=== PATIENT | female | born 1940 | race Caucasian/White ===

== ENCOUNTER 2021-06-24 10:23 | Emergency (ER) | payer MEDICARE, OTHER, SELFPAY ==
--- NOTE | ~2021-06-24 | XR_ITS ---
EXAMINATION: XR foot RT min 3V DATE: 06/24/2021 11:32 INDICATION: Right fifth toe pain. TECHNIQUE: 4 views of right foot were obtained. COMPARISON: None. FINDINGS: Bone alignment is normal. No acute fracture. There is diffuse osteopenia. There is mild ost eoarthritis of some of the interphalangeal joints. There are enthesophytes at the posterior and plant ar aspects of calcaneal tuberosity. IMPRESSION: 1. Mild polyarticular osteoarthritis. Reviewed, dictated and finalized at location [facility]
[2021-06-24 11:05] VITALS: BP 141/63; PULSE 98; RESP 16; TEMP 36.8; O2SAT 98
--- NOTE | 2021-06-24 11:22 | ED.LOWEXIN ---
HPI - Extremity Injury (Lower) General Chief Complaint: Extremity Problem,Nontraumatic Stated Complaint: Rt Foot Pain Time Seen by Provider: 06/24/21 11:22 Source: patient Mode of arrival: ambulatory Limitations: no limitations History of Present Illness HPI Narrative: Briseyda Koenig is an 80 yo female with PMH of osteoporosis, anxiety, high blood pressure, high cholesterol, GERD, who comes to [facility] with pain in her 2 toes (4 and 5) of her R foot x 2 days. Keeps her up at night; denies trauma or injury Related Data Home Medications Medication Instructions Recorded Confirmed alendronate 70 mg tablet 70 mg PO WEEKLY 05/16/20 05/16/21 alprazolam 0.5 mg tablet 0.5 mg PO TID 05/16/20 05/16/21 amlodipine 5 mg tablet 5 mg PO DAILY 05/16/20 05/16/21 aspirin 81 mg tablet,delayed 81 mg PO DAILY 05/16/20 05/16/21 release atorvastatin 10 mg tablet 10 mg PO DAILY 05/16/20 05/16/21 cholecalciferol (vitamin D3) 50 50 mcg PO DAILY 05/16/20 05/16/21 mcg (2,000 unit) capsule clonidine 0.1 mg/24 hr weekly 1 patch TRANSDERMAL WEEKLY 05/16/20 05/16/21 transdermal patch famotidine 20 mg tablet 20 mg PO DAILY 05/16/20 05/16/21 irbesartan 300 mg tablet 300 mg PO DAILY 05/16/20 05/16/21 mirtazapine 45 mg tablet 45 mg PO DAILY 05/16/20 05/16/21 multivitamin,[id number] 1 tablet PO DAILY 05/16/20 05/16/21 omeprazole 40 mg capsule,delayed 40 mg PO DAILY 05/16/20 05/16/21 release spironolactone 25 mg tablet 25 mg PO DAILY 05/16/20 05/16/21 tizanidine 4 mg tablet 4 mg PO TID PRN 05/16/20 05/16/21 Allergies Allergy/AdvReac Type Severity Reaction Status Date / Time celecoxib Allergy Mild HIVES Verified 05/16/21 13:14 amoxicillin Allergy Unknown VOMITING Verified 05/16/21 13:14 clavulanic acid Allergy Unknown VOMITING Verified 05/16/21 13:14 clindamycin Allergy Unknown unknown Verified 05/16/21 13:14 NSAIDS (Non-Steroidal Allergy Unknown unknown Verified 05/16/21 13:14 Anti-Inflamma Review of Systems Review of Systems: CONSTITUTIONAL: Denies fever, chills, sweats. EYES: Denies visual changes, redness, discharge. ENT: Denies rhinorrhea, congestion, sore throat, otalgia. CARDIOVASCULAR: Denies chest pain, palpitations, edema. RESPIRATORY: Denies dyspnea, wheezing, cough GASTROINTESTINAL: Denies abdominal pain, nausea, vomiting, diarrhea. GENITOURINARY: Denies dysuria, hematuria, abnormal discharge SKIN: Denies rash or itching. NEUROLOGIC: Denies numbness, or focal weakness. PSYCHIATRIC: Denies anxiety or depression. Right toe pain toes 4 and 5 PMFSH Past Medical History Medical History Anxiety High cholesterol Hypertension Osteoporosis Family History Family History Father Hypertension Mother Hypertension Breast cancer Social History Social History Smoking status: Never smoker Alcohol intake: never Substance use: never Substance use type: does not use Comments At time of signature, I agree with nursing past medical, surgical, social and family history. There is no relevant family history pertinent to the presenting complaint. Exam Narrative: GENERAL: This is a well-nourished, well-developed patient, in mild distress. HEAD: normocephalic, atraumatic. EYES: Sclera clear/white. Vision is grossly intact. EARS: External ears normal, Hearing grossly intact. NOSE: External nose normal without nasal discharge, nares without redness, no rhinorrhea. THROAT: Mucous membranes moist, NECK: Neck supple, CARDIOVASCULAR: Regular rate and rhythm without murmurs, gallops, or rubs. RESPIRATORY: Clear to auscultation. Breath sounds equal bilaterally. No wheezes, rales, or rhonchi. GASTROINTESTINAL: Abdomen soft, SKIN: warm, intact with no suspicious lesions or rash, good texture and turgor. NEURO: awake, alert, and oriented to person, place an
== END 2021-06-24 12:19 | disposition home or self-care (01) ==
PROVIDERS: Emergency Provider Nurse Practitioner; PCP Internal Medicine
DX: M79.674 Pain in right toe(s) (principal); F41.9 Anxiety disorder, unspecified; I10 Essential (primary) hypertension; E78.00 Pure hypercholesterolemia, unspecified; G21.9 Secondary parkinsonism, unspecified; M81.0 Age-related osteoporosis without current pathological fracture; Z79.82 Long term (current) use of aspirin
CPT/HCPCS: 73630; 99213; G0463

== ENCOUNTER 2023-01-21 12:51 | Outpatient (CLI) | payer MEDICARE, OTHER, SELFPAY | END 2023-01-21 12:52 | disposition home or self-care (01) | PROVIDERS: PCP Otolaryngology; Visit Provider Otolaryngology | DX: H90.3 Sensorineural hearing loss, bilateral (principal) | CPT/HCPCS: 92557; 92567 ==